=== PATIENT | female | born 1975 | race Two or more races ===

== ENCOUNTER → 2017-12-17 | Outpatient (CLI) | payer OTHER ==
--- NOTE | 2017-12-23 15:19 | RAD ---
DATE: 12/17/2017 EXAM: MAMMO ANUEL DIAG BILAT HISTORY: Lump, pain COMPARISON: 12/26/2014 This study was interpreted with the benefit of Computerized Aided Detection (CAD). The breast parenchyma is heterogeneously dense, which could reduce sensitivity of mammography. Breast parenchyma level C. FINDINGS: 2-D and 3-D tomosynthesis imaging was performed in CC and MLO projections. 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 No new or enlarging breast densities are seen. The area of palpable concern lies near the left axillary level. Predominantly fatty type tissue is evident in that region. No suspicious microcalcifications are identified. Left breast ultrasound, 12/17/2017: A targeted ultrasound exam was performed of the area of palpable concern in the left axilla. The patient actually pinpoints to areas of concern. Normal heterogeneous subcutaneous fatty tissues are seen. No cystic or solid mass is evident. IMPRESSION: 1. Stable mammograms without evidence of malignancy. 2. The targeted ultrasound exam of the areas of concern in the left axilla demonstrate only fatty tissues. No mass is identified. Clinical surveillance is suggested. BI-RADS CATEGORY: 2 BENIGN FINDING(S) RECOMMENDED FOLLOW-UP: 12M 12 MONTH FOLLOW-UP PQRS compliance statement: Patient information was entered into a reminder system with a target due date for the next mammogram. Mammography is a sensitive method for finding small breast cancers, but it does not detect them all and is not a substitute for careful clinical examination. A negative mammogram does not negate a clinically suspicious finding and should not result in delay in biopsying a clinically suspicious abnormality. "Our facility is accredited by the [employer] Mammography Program." DICTATED AND SIGNED BY: DEANNA STRAUSS MD DATE: 12/17/17 0942 MTDD
== END | disposition home or self-care (01) ==
LOC: MAMMO 08:45
PROVIDERS: ATTEND Nurse Practitioner Family
DX: N63.20 Unspecified lump in the left breast, unspecified quadrant (principal); N64.4 Mastodynia
CPT/HCPCS: 76641; 77066; G0279; 77062

== ENCOUNTER 2018-04-04 17:38 | Emergency (ER) | payer OTHER ==
--- NOTE | 2018-04-04 17:49 | ED.ADGEN ---
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 my lower back ...hurts to much... to sit... to stand.... to move..." HPI HPI Patient is a 42 year old female who presents with above hx and complaints of severe back spasm. Patient denies any falls. Patient localizes her pain in the lumbar sacral area and S1 level. Pain is paraspinal as well as some mid line tenderness at L5-S1 area. DTRs are +2 at patella. Positive straight leg lift on the right. There is some radiation of pain down right leg. Distal neurovascular intact. No problems with defecation or urination. No history of fever or immunosuppression. No history of IV drug use. Patient is normally healthy. Follows at [facility]. Review of Systems Review of Systems Constitutional: Denies fever or chills [] Eyes: Denies change in visual acuity, redness, or eye pain [] HENT: Denies nasal congestion or sore throat [] Respiratory: Denies cough or shortness of breath [] Cardiovascular: No additional information not addressed in HPI [] GI: Denies abdominal pain, nausea, vomiting, bloody stools or diarrhea [] : Denies dysuria or hematuria [] Musculoskeletal: Complaints of lumbar sacral back pain Integument: Denies rash or skin lesions [] Neurologic: Denies headache, focal weakness or sensory changes [] Endocrine: Denies polyuria or polydipsia [] All other systems were reviewed and found to be within normal limits, except as documented in this note. Family History Family History Non- contributory Current Medications Current Medications Current Medications Medications (Trade) Dose Ordered Sig/Yesica Start Time Stop Time Status Last Admin Dose Admin Ketorolac Tromethamine (Toradol) 60 mg 1X ONCE 04/04/18 18:45 04/04/18 18:46 DC 04/04/18 18:49 60 MG Methylprednisolone Acetate (DEPO-Medrol IM) 40 mg 1X ONCE 04/04/18 18:45 04/04/18 18:46 DC 04/04/18 18:48 40 MG Morphine Sulfate (Morphine 10mg Syringe) 10 mg 1X ONCE 04/04/18 18:45 04/04/18 18:46 DC 04/04/18 18:49 10 MG Orphenadrine Citrate (Norflex) 60 mg 1X ONCE 04/04/18 18:45 04/04/18 18:46 DC 04/04/18 18:49 60 MG Allergies Allergies Allergies Coded Allergies Type Severity Reaction Last Updated Verified No Known Drug Allergies 04/04/18 No No known drug allergies Physical Exam Physical Exam Constitutional: Well developed, well nourished, in acute distress, non-toxic appearance. [] HENT: Normocephalic, atraumatic, bilateral external ears normal, oropharynx moist, no oral exudates, nose normal. [] Eyes: PERRLA, EOMI, conjunctiva normal, no discharge. [] Neck: Normal range of motion, no tenderness, supple, no stridor. [] Cardiovascular:Heart rate regular rhythm, no murmur [] Lungs & Thorax: Bilateral breath sounds clear to auscultation [] Abdomen: Bowel sounds normal, soft, no tenderness, no masses, no pulsatile masses. [] No saddle loss reported. Skin: Warm, dry, no erythema, no rash. [] Back: Lumbar sacral muscle spasms and tenderness, no CVA tenderness. [] Extremities: No tenderness, no cyanosis, no clubbing, ROM intact, no edema. [] Straight leg lift on right exacerbates pain. Neurologic: Alert and oriented X 3, normal motor function, normal sensory function, no focal deficits noted. [] Psychologic: Affect anxious, judgement normal, mood normal. [] Current Patient Data Vital Signs Vital Signs Date Time Temp Pulse Resp B/P (MAP) Pulse Ox O2 Delivery O2 Flow Rate FiO2 04/04/18 19:47 68 18 131/96 (108) 97 04/04/18 19:36 Room Air 04/04/18 17:44 98.5 Lab Results Laboratory Tests Test 04/04/18 18:35 Urine Collection Type Unknown Urine Color Straw Urine Clarity Hazy Urine pH 5.5 Urine Specific [place] 1.010 Urine Protein Neg (NEG-TRACE) Urine Glucose (UA) Neg mg/dL (NEG) Urine Ketones (Stick) Neg mg/dL (NEG) Urine Blood Small (NEG) Urine Nitrite Neg (NEG) Urine Bilirubin Neg (NEG) Urine Urobilinogen Dipstick 0.2 mg/dL (0.2 mg/dL) Urine Leukocyte Esterase Trace (NEG) Urine RBC 3-5 /HPF (0-2) Urine WBC 1-4 /HPF (0-4) Urine Squamous Epithelial Cells Many /LPF Urine Bacteria 0 /HPF (0-FEW) Urine Mucus Slight /LPF Urine Test Negative (NEG) EKG EKG [] Radiology/Procedures Radiology/Procedures CT of lumbar spine shows[]DJD, facet and disc dz. No acte fx. No significant central canal narrow. Course & Med Decision Making Course & Med Decision Making Pertinent Labs and Imaging studies reviewed. (See chart for details) Must use ice packs as needed for pain. After 3 days may advance to moist heat is not reinjured. Take [id number] Tylenol and ibuprofen for pain. For marked pain take Vicoprofen up to 4 times a day. May also use Flexeril 10 mg up 3 times a day for spasms. Follow-up primary care. Return if any concerns. May needed myelogram to evaluate cord and facet impingement [] Final Impression Final Impression 1. Lumbar back pain and muscle Spasm 2. Sciatica Dragon Disclaimer Dragon Disclaimer This electronic medical record was generated, in whole or in part, using a voice recognition dictation system. ALHAJI MAGALLANES MD Apr 04, 2018 17:49
[2018-04-04] MEDS ORDERED: IBUP400T18 PO (18:24)
[2018-04-04] MEDS ORDERED: HYDR-79 PO (18:24)
[2018-04-04] MEDS ORDERED: CYCL-331 PO (18:24)
[2018-04-04] MEDS ORDERED: ORPHENADRINE CITRATE 60 MG/2 ML VIAL. IM ONE (18:45)
[2018-04-04] MEDS ORDERED: MORPHINE SULFATE 10 MG/ML SYRINGE. SQ ONE (18:45)
[2018-04-04] MEDS ORDERED: methylPREDNISolone ACETATE 40 MG/ML VIAL. IM ONE (18:45)
[2018-04-04] MEDS ORDERED: KETOROLAC 60 MG/2 ML VIAL. IM ONE (18:45)
[2018-04-04 19:09] LABS: U PREG PATIENT NEGATIVE (NEG)
--- NOTE | 2018-04-04 19:09 | RAD ---
PQRS Compliance Statement: One or more of the following individualized dose reduction techniques were utilized for this examination: 1. Automated exposure control 2. Adjustment of the mA and/or kV according to patient size 3. Use of iterative reconstruction technique CT LUMBAR SPINE WO CONTRAST Clinical Indication: Severe lower back pain today, no known trauma Comparison: None. TECHNIQUE: Helical CT imaging of the lumbar spine is performed without IV contrast. Findings: There is no acute compression fracture. The vertebral body height and alignment are maintained. There is no disc space narrowing. There is Schmorl's node at the left inferior endplate of L4. There is surrounding sclerosis that is presumably reactive. The sacroiliac joints are symmetric. L1/L2, L2/L3, and L3/L4: Unremarkable. L4/L5: There is broad-based posterior disc bulge and mild facet hypertrophy and ligamentum flavum redundancy. There is narrowing of the lateral recesses. Central canal is mildly narrowed. The neural foramina are patent. L5/S1: There is tiny central disc osteophyte complex. The central canal is patent. Neural foramina are adequate. Cholecystectomy. Visualized retroperitoneum otherwise unremarkable. IMPRESSION: 1. No acute compression fracture or malalignment. 2. Mild degenerative spondylosis of L4/L5. Electronically signed by: Kayden Lozada MD (04/04/2018 7:06 PM) [facility]
[2018-04-04 19:25] LABS: BACTERIA,URINE 0 /HPF (0-FEW); BILIRUBIN,URINE NEG (NEG); CLARITY,URINE HAZY; COLOR,URINE STRAW; GLUCOSE,URINE NEG (NEG); NITRITE,URINE NEG (NEG); SQUAMOUS EPITHELIAL CELL,UR MANY /LPF; UROBILINOGEN,URINE 0.2 mg/dL (0.2 mg/dL)
[2018-04-04 19:47] VITALS: BP 131/96
== END 2018-04-04 19:50 | disposition home or self-care (01) ==
LOC: ER 17:38
DX: M54.41 Lumbago with sciatica, right side (principal)
CPT/HCPCS: 72131; 81001; 81025; 96372; 99285; J1030; J1885; J2270; J2360; 87086